=== PATIENT | female | born 1945 | race African-American/Black ===

== ENCOUNTER 2016-08-09 00:55 | Observation (INO) ==
[2016-08-09] MEDS ORDERED: KETOROLAC 30 MG/1 ML VIAL IV STA (01:16)
[2016-08-09] MEDS ORDERED: METHOCARBAMOL 1,000 MG/10 ML VIAL IV STA (01:16)
[2016-08-09] MEDS ORDERED: traMADol 50 MG TABLET PO STA (01:16)
[2016-08-09] MEDS ORDERED: methylPREDNISolone SOD SUC 125 MG/2 ML VIAL IV STA (01:16)
--- NOTE | 2016-08-09 01:20 | Emergency Department Note ---
Arrival - Arrival Chief Complaint: Chest Pain Stated Complaint: CHEST PAIN ED Nursing Triage Note: Patient complains of chest pain that began yesterday around lunch time. Denies nausea or vomiting. Hx of HTN. Patient took two baby aspirins today and had two baby aspirins as well as 2 nitroglycerin en route to facility. States that chest pain with from pain level 8 out of 10 to a level 6 out of 10 after nitroglycerin. Mode of Arrival: Ambulatory Limitations: No Limitations Source: Patient Time Seen by Provider: 08/09/16 01:16 - History of Present Illness HPI Narrative: This 71-year-old black female presents with 24 hours of mechanical chest wall pain not associated with nausea, vomiting, shortness of breath, or diaphoresis. The patient has no prior history of cardiac disease other than hypertension. Currently she is in no acute distress. Onset (ago): hour(s) (Patient presents 24 hours post onset of symptoms) Consistency: constant Severity: mild Date of Last Menstrual Period: hysterectomy Allergies/Adverse Reactions: Allergies Allergy/AdvReac Type Severity Reaction Status Date / Time No Known Allergies Allergy Unverified 03/14/15 11:24 Home Medications: Home Medications Medication Instructions Recorded Confirmed Type Amoxapine 50 mg PO DAILY 08/02/15 11/10/15 History Benztropine Tab [Cogentin Tab] 1 tablet PO BID 08/02/15 11/10/15 History Diltiazem HCl [Diltiazem ER] 180 mg PO DAILY 08/02/15 11/10/15 History Estradiol [Estradiol Tab] 1 tablet PO DAILY 08/02/15 11/10/15 History Furosemide Tab [Lasix Tab] 40 mg PO DAILY 08/02/15 11/10/15 History Potassium Chloride Cap/Tab [K Dur] 40 meq PO BID 08/02/15 11/10/15 History risperiDONE [Risperdal] 2 mg PO DAILY 08/02/15 11/10/15 History Aspirin [Ecotrin] 81 mg PO DAILY 11/10/15 11/10/15 History Bisacodyl [Correctol] 5 mg PO DIRECTED PRN 11/10/15 11/10/15 History Donepezil [Aricept] 5 mg PO BEDTIME 11/10/15 11/10/15 History Acetaminophen Tab [Tylenol Tab] 325 mg PO Q4H PRN #0 tablet 11/12/15 Rx Docusate Sodium Cap [Colace Cap] 100 mg PO BID PRN #30 capsule 11/12/15 Rx HYDROcodone/ACETAMIN 7.5-325 1 tablet PO Q6H #10 tablet 11/12/15 Rx [[place] 7.5-325] Lactulose Liquid [Chronulac] 20 gm PO Q4H PRN #7 udcup 11/12/15 Rx Pantoprazole Tab [Protonix Tab] 40 mg PO DAILY #30 tablet 11/12/15 Rx guaiFENesin/DM ER 600-30 [Mucinex 1 tablet PO BID PRN #20 tablet 11/12/15 Rx Dm 600-30 MG] Indomethacin Cap [Indocin Cap] 25 mg PO TID #30 capsule 08/09/16 Rx Tizanidine HCl [Zanaflex] 2 mg PO Q6H #40 capsule 08/09/16 Rx predniSONE TAB [PredniSONE] 20 mg PO DAILY #15 tablet 08/09/16 Rx Review of System - Review of System 12 point system: reviewed and no additional remarkable complaints except as stated - Review of System Constitutional: Present: as per HPI Respiratory: Present: as per HPI Cardiovascular: Present: as per HPI Gastrointestinal: Present: as per HPI Medical,Surgical,& Family Hx - Medical History Cardio: History of: Hypertension No history of: Aneurysm, Cardiac Dysrhythmia, Cerebrovascular Disease, Congenital Heart Disease, CHF, CAD, [place], Pacemaker, PVD, Valvular Heart Disease, Cardiovascular Problems Psychological: History of: Anxiety Disorders, Bipolar Disorder (medication bottles), Depression (medication bottles) Endocrine: No history of: Dyslipidemia Gastrointestinal: History of: GI Problems (constipation) - Surgical History Cardiac Surgeries: Patient Denies: Femoral-Popliteal Bypass Graft, Cardiac Catheterization, Cardiac Surgery, Carotid Endarterectomy, Internal Defibrillator, Vascular Access Devices HEENT Surgeries: Patient denies: Carotid Endarterectomy Abdominal Surgeries: Patient denies: Abdominal Surgery, Appendectomy, Cholecystectomy, Colonoscopy , Gastric Bypass Surgery, EGD, Hernia Repair, Splenectomy Reproductive Surgeries: Patient denies;: Genitourinary Surgery - Family History Family History: Reports;: Family Cancer (father had colon cancer, brother unknown cancer), Family Diabetes, Family Hypertension - Social History Smoking Status: Never smoker Frequency of Alcohol Use: None Type of Drug Use: None Exam Physical Examination: GENERAL: Well developed, well nourished elderly black female in no acute distress. HEENT: Normocephalic. No trauma. Moist mucous membranes. EOMI. PERRLA. ENT NML NECK: Supple. No adenopathy. CARDIAC: Regular. No murmurs. Heart rate 90 CHEST: Clear to auscultation. No respiratory distress. O2 sat 98%. Very tender right left costosternal junctions. ABDOMEN: Soft. Nontender. Active bowel sounds. EXTREMITIES: No trauma. Normal ROM. No pedal edema. SKIN: No diaphoresis. No rash. NEURO: Alert. Neuro intact. No focal deficits. Vital Signs: Vital Signs Temperature 97.8 F 08/09/16 00:56 Pulse Rate 82 08/09/16 00:56 Respiratory Rate 20 08/09/16 00:56 Blood Pressure 140/89 08/09/16 00:56 O2 Sat by Pulse Oximetry 98 08/09/16 00:56 Course - Reevaluation(s) Reevaluation #1: Discussed with patient the need for hospitalization for serial follow-up of cardiac enzymes. - Consultations Consultation #1: Discussed with the hospitalist, Dr. Knapp, who will admit for further evaluation and treatment. Results - Labs Labs: I reviewed the cardiac enzymes and noted the increasing bump in troponin. - Impressions EKG: Sinus rhythm at 90 with normal WA interval and QRS duration. Left axis deviation with nonspecific ST changes. No acute injury pattern noted. - Diagnostic Findings Procedure: Chest x-ray: image reviewed by me, report reviewed by me (Uncoiling of the aorta otherwise no acute disease.) Disposition Clinical Impression: Costochondritis, Abnormal cardiac enzyme Case discussed with: patient Condition: Stable Prescriptions: Indomethacin Cap [Indocin Cap] 25 mg PO TID #30 capsule Tizanidine HCl [Zanaflex] 2 mg PO Q6H #40 capsule predniSONE TAB [PredniSONE] 20 mg PO DAILY #15 tablet New Prescriptions: Rx's Medication Instructions Recorded Indomethacin Cap [Indocin Cap] 25 mg PO TID #30 capsule 08/09/16 Tizanidine HCl [Zanaflex] 2 mg PO Q6H #40 capsule 08/09/16 predniSONE TAB [PredniSONE] 20 mg PO DAILY #15 tablet 08/09/16 Time of Disposition: 03:22
--- NOTE | 2016-08-09 01:24 | EKG Report ---
Stationary ECG Study [facility] ER Test Date: 08/09/2016 1:09:06 AM Pat Name: MOE WALLER Department: Room: Gender: F Peanut Shaker: VIDYA ARZOLA : 1945 Requested by: Michael Tejada Order Number: [id number] Reading MD: RHIAN MEADOWS Intervals [place] Rate: 94 P: 17 SD: 168 QRS: -46 QRSD: 101 T: 47 QT: 362 QTc: 414 Interpretive Statements SINUS RHYTHM WITH PAC MARKED LEFT AXIS DEVIATION Electronically Signed On 08-10-16 12:42:08 CDT by RHINA MEADOWS [email or web address]
[2016-08-09] MEDS ORDERED: METHOCARBAMOL 1,000 MG/10 ML VIAL ONE (01:26)
[2016-08-09] MEDS ORDERED: traMADol 50 MG TABLET ONE (01:27)
[2016-08-09] MEDS ORDERED: methylPREDNISolone SOD SUC 125 MG/2 ML VIAL ONE (01:27)
[2016-08-09] MEDS ORDERED: KETOROLAC 30 MG/1 ML VIAL ONE (01:27)
[2016-08-09 01:46] LABS: Troponin I Only 0.064 NG/ML (0.00-0.045)
[2016-08-09 03:11] LABS: Troponin I Only 0.072 NG/ML (0.00-0.045)
[2016-08-09 03:38] LABS: Hematocrit 36.6 VOL% (35.7-47.0); Hemoglobin 11.5 GM/DL (12.0-16.0); Immature Granulocytes % 0.4 %; Immature Granulocytes Absolute 0.03 #; Lymphocytes # 1.8 10*3/uL (1.4-4.0); Lymphocytes % 20.7 % (21.3-54.2); Mean Corpuscular HGB Conc 31.4 GM/DL (32-36); Mean Corpuscular Hemoglobin 27 PG (27-34); Mean Corpuscular Volume 84.9 FL (87-102); Mean Platelet Volume 8.9 FL (9.6-12.0); Monocytes # 0.3 10*3/uL (0.11-0.8); Monocytes % 3.4 % (1.7-12.7); Neutrophils # 6.4 10*3/uL (1.4-7.4); Neutrophils % 75.5 % (38.7-73.9); Platelet Count 370 T/CUMM (130-400); Red Blood Count 4.31 MC/CUMM (3.8-5.5); Red Cell Distribution Width 14.1 % (9.3-17.3); White Blood Count 8.5 T/CUMM (4-12)
--- NOTE | 2016-08-09 03:47 | Hospitalist History & Physical ---
Assessment and Plan (1) Chest pain Status: Acute Current Visit: Yes (2) Hypertension Status: Acute Assessment and plan: Our plan for this patient 1. Admit the patient to telemetry 2. Cardiology consult 3. Serial cardiac enzymes 4. Check fasting lipid profile 5. Follow-up on the chemistry Current Visit: No History of Present Illness Chief complaint: Chest pain History of present illness: Ms. Franks is a 71 year old female with past medical history significant for hypertension presents with chief complaint of chest pain off and on 2 weeks. Patient reports that as a heavy sensation in she has a smothering sensation when this comes on. She gets short of breath there is an exertional component but she denies diaphoresis.. She does report that the pain seems to radiate to her right arm. She got concerned about night and took 2 baby aspirins and called EMS. She also was given 2 nitros in route. She reported that the pain was 8 out of 10 but it did reduce after the nitro I was consulted to admit her Home Medications Medication Instructions Recorded Confirmed Type Amoxapine 50 mg PO DAILY 08/02/15 08/09/16 History Benztropine Tab [Cogentin Tab] 1 tablet PO BID 08/02/15 08/09/16 History Diltiazem HCl [Diltiazem ER] 180 mg PO DAILY 08/02/15 08/09/16 History Estradiol [Estradiol Tab] 1 tablet PO DAILY 08/02/15 08/09/16 History Furosemide Tab [Lasix Tab] 40 mg PO DAILY 08/02/15 08/09/16 History Potassium Chloride Cap/Tab [K Dur] 40 meq PO BID 08/02/15 08/09/16 History risperiDONE [Risperdal] 2 mg PO DAILY 08/02/15 08/09/16 History Aspirin [Ecotrin] 81 mg PO DAILY 11/10/15 08/09/16 History Bisacodyl [Correctol] 5 mg PO DIRECTED PRN 11/10/15 08/09/16 History Donepezil [Aricept] 5 mg PO BEDTIME 11/10/15 08/09/16 History Acetaminophen Tab [Tylenol Tab] 325 mg PO Q4H PRN #0 tablet 11/12/15 08/09/16 Rx Docusate Sodium Cap [Colace Cap] 100 mg PO BID PRN #30 capsule 11/12/15 Rx HYDROcodone/ACETAMIN 7.5-325 1 tablet PO Q6H #10 tablet 11/12/15 08/09/16 Rx [[place] 7.5-325] Lactulose Liquid [Chronulac] 20 gm PO Q4H PRN #7 udcup 11/12/15 08/09/16 Rx Pantoprazole Tab [Protonix Tab] 40 mg PO DAILY #30 tablet 11/12/15 08/09/16 Rx guaiFENesin/DM ER 600-30 [Mucinex 1 tablet PO BID PRN #20 tablet 11/12/15 Rx Dm 600-30 MG] Indomethacin Cap [Indocin Cap] 25 mg PO TID #30 capsule 08/09/16 Rx Magnesium Chloride [Slow Mag] 64 mg PO DAILY 08/09/16 08/09/16 History Tizanidine HCl [Zanaflex] 2 mg PO Q6H #40 capsule 08/09/16 Rx predniSONE TAB [PredniSONE] 20 mg PO DAILY #15 tablet 08/09/16 Rx Allergies Allergy/AdvReac Type Severity Reaction Status Date / Time No Known Allergies Allergy Unverified 03/14/15 11:24 Medical,Surgical,& Family Hx - Medical History Cardio: History of: Hypertension No history of: Aneurysm, Cardiac Dysrhythmia, Cerebrovascular Disease, Congenital Heart Disease, CHF, CAD, [place], Pacemaker, PVD, Valvular Heart Disease, Cardiovascular Problems Psychological: History of: Anxiety Disorders, Bipolar Disorder (medication bottles), Depression (medication bottles) Endocrine: No history of: Dyslipidemia Gastrointestinal: History of: GI Problems (constipation) - Surgical History Cardiac Surgeries: Patient Denies: Femoral-Popliteal Bypass Graft, Cardiac Catheterization, Cardiac Surgery, Carotid Endarterectomy, Internal Defibrillator, Vascular Access Devices HEENT Surgeries: Patient denies: Carotid Endarterectomy Abdominal Surgeries: Patient denies: Abdominal Surgery, Appendectomy, Cholecystectomy, Colonoscopy , Gastric Bypass Surgery, EGD, Hernia Repair, Splenectomy Reproductive Surgeries: Surgical HX of;: Hysterectomy Patient denies;: Genitourinary Surgery - Family History Family History: Reports;: Family Cancer (father had colon cancer, brother unknown cancer), Family Diabetes, Family Hypertension - Social History Smoking Status: Never smoker Frequency of Alcohol Use: None Type of Drug Use: None 12 point system: reviewed and no additional remarkable complaints except as stated Exam - Constitutional Vitals: Period Temp Pulse Resp BP Sys/Garrett Pulse Ox Last 24 Hr 97.8 F-97.8 F 82-82 20-20 140-140/84-89 98 General appearance: normal weight - Head Head exam: Present: normal inspection - Eye Eye exam: Present: EOMI Pupils: Present: MYKEL - ENT ENT exam: Present: normal exam - Neck Neck exam: Present: normal inspection - Respiratory Respiratory exam: Present: clear to auscultation bilaterally - Cardiovascular Cardiovascular exam: Present: regular rate and rhythm - GI/Abdominal GI/Abdominal exam: Present: normal bowel sounds - Extremities Exam Extremities exam: Present: normal inspection - Back Exam Back exam: Present: normal inspection - Neurological Exam Neurological exam: Present: alert Results - Labs CBC & BMP: 08/09/16 03:27
[2016-08-09] MEDS ORDERED: DOCUSATE SODIUM 100 MG CAPSULE PO PRN (03:53)
[2016-08-09] MEDS ORDERED: ACETAMINOPHEN 325 MG TABLET PO PRN (03:53)
[2016-08-09] MEDS ORDERED: guaiFENesin/DM ER 600-30 MG TABLET PO PRN (03:53)
--- NOTE | 2016-08-09 03:53 | EKG Report ---
Stationary ECG Study [facility] ER Test Date: 08/09/2016 3:52:02 AM Pat Name: MOE WALLER Department: Room: Gender: F Finishing Inspector: IZAIAH : 1945 Requested by: Michael Tejada Order Number: [id number] Reading MD: RHINA MEADOWS Intervals [place] Rate: 78 P: 33 NV: 184 QRS: -33 QRSD: 105 T: 52 QT: 384 QTc: 417 Interpretive Statements SINUS RHYTHM MARKED LEFT AXIS DEVIATION POSSIBLE SEPTAL MYOCARDIAL INFARCTION, OF INDETERMINATE AGE Electronically Signed On 08-10-16 12:47:47 CDT by RHINA MEADOWS [email or web address]
[2016-08-09 04:17] LABS: Albumin 3.2 G/DL (3.4-5.0); Bilirubin,Total 0.4 MG/DL (0.2-1.0); Calcium 8.6 MG/DL (8.5-10.1); Potassium 4.1 MMOL/L (3.5-5.1); Total Protein 6.3 G/DL (6.4-8.3)
[2016-08-09 05:05] LABS: Risk Ratio 1.83; VLDL CHOLESTEROL 15.4 MG/DL
[2016-08-09] MEDS: NITROGLYCERIN 2% OINT 1 INCH/GM PACK TOP SCH ×3 (05:47→17:33)
--- NOTE | 2016-08-09 07:41 | EKG Report ---
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
--- NOTE | 2016-08-09 07:43 | XRay Report ---
Exam: XR chest 1V portable Indication: Midline chest pain Comparison study: 08/02/2015 Findings: The heart, mediastinum and bony structures are stable from prior. A lung volumes with elevation of the hemidiaphragms appear similar to prior. Minimal basilar interstitial opacities are similar to prior and may represent basilar atelectasis/scarring. There is no focal consolidation, pneumothorax or pleural effusion identified. Impression: No acute cardiopulmonary process. Similar hypoinflation with basilar atelectasis suggested, which appears similar to prior. PROCEDURE INTERPRETED AT [facility] DEPARTMENT OF RADIOLOGY Final Report Signed by: Gregorio Kenyon
[2016-08-09] MEDS ORDERED: BENZTROPINE 0.5 MG TABLET PO SCH (09:00)
[2016-08-09] MEDS ORDERED: PANTOPRAZOLE 40 MG TABLET PO SCH (09:00)
[2016-08-09] MEDS ORDERED: RISPERIDONE 2 MG PO SCH (09:00)
[2016-08-09] MEDS ORDERED: ESTRADIOL PO SCH (09:00)
[2016-08-09] MEDS ORDERED: DIAZEPAM 5 MG TABLET PO ONE (09:17)
[2016-08-09] MEDS ORDERED: MAGNESIUM SULF RIDER 2 GM in PREMIX 1 EACH IV PRN (09:17)
[2016-08-09] MEDS ORDERED: diphenhydrAMINE CAP 25 MG CAPSULE PO ONE (09:17)
[2016-08-09] MEDS ORDERED: POTASSIUM CHLORIDE RIDER 10 MEQ in PREMIX 1 EACH IV PRN (09:17)
--- NOTE | 2016-08-09 10:00 | Cardiology Consult Note ---
Assessment and Plan (1) Chest pain Status: Acute Assessment and plan: The patient's symptoms are concerning for angina. She also has a very slight change in her cardiac enzymes and nonspecific EKG changes. We discussed options for further workup and management, and I think cardiac catheterization would be the best way to proceed. The patient is agreeable. I am going to see if we can get this scheduled for today. Current Visit: Yes (2) Elevated troponin Status: Acute Current Visit: Yes (3) Hypertension Status: Acute Current Visit: No (4) GERD (gastroesophageal reflux disease) Status: Acute Current Visit: Yes History of Present Illness - Consult Narrative History of present illness: Ms. Franks is a 71 year old female with a history of hypertension and gastroesophageal reflux who presents to the hospital with complaints of chest pain. She tells me that she gets a severe pain in her chest in the substernal region which seems to be exacerbated by exertion and improves with rest or nitroglycerin. There is no associated symptoms such as diaphoresis or nausea. She does get somewhat short of breath with activity. The pain will occasionally radiate to her arms bilaterally. The symptoms can last up to half an hour. When she gets the symptoms she takes aspirin and this seems to help. Yesterday when she was brought to the emergency room she received nitroglycerin and this did improve her symptoms. The patient also has palpitations. She says sometimes it feels like her heart is fluttering. The symptoms seem random in occurrence. This can last for up to an hour. There are no specific exacerbating or relieving factors. The symptoms are moderate in severity. She denies any syncopal events. She has no orthopnea, PND, or peripheral edema. She denies any fever, chills, or cough. She denies any dysphagia or gastrointestinal blood loss. The, was seeing her she was pain-free. The patient had a slight bump in her cardiac troponin to 0.072 on admission. Her CPK was normal. Her EKG shows normal sinus rhythm and nonspecific ST-T changes. She denies any previous history of myocardial infarction, congestive heart failure, or stent placement. CC: Ciarra Poole MD - Home Medications and Allergies Home Medications: Home Medications Medication Instructions Recorded Confirmed Type Amoxapine 50 mg PO BID 08/02/15 08/09/16 History Benztropine Tab [Cogentin Tab] 1 tablet PO BEDTIME 08/02/15 08/09/16 History Diltiazem HCl [Diltiazem ER] 180 mg PO DAILY 08/02/15 08/09/16 History Estradiol [Estradiol Tab] 1 tablet PO DAILY 08/02/15 08/09/16 History Furosemide Tab [Lasix Tab] 40 mg PO DAILY 08/02/15 08/09/16 History Potassium Chloride Cap/Tab [K Dur] 20 meq PO BID 08/02/15 08/09/16 History risperiDONE [Risperdal] 4 mg PO DAILY 08/02/15 08/09/16 History Aspirin [Ecotrin] 81 mg PO DAILY 11/10/15 08/09/16 History Bisacodyl [Correctol] 5 mg PO DAILY PRN 11/10/15 08/09/16 History Donepezil [Aricept] 5 mg PO BEDTIME 11/10/15 08/09/16 History Magnesium Chloride [Slow Mag] 64 mg PO DAILY 08/09/16 08/09/16 History Allergies/Adverse Reactions: Allergies Allergy/AdvReac Type Severity Reaction Status Date / Time No Known Allergies Allergy Unverified 03/14/15 11:24 12 point system: reviewed and no additional remarkable complaints except as stated Medical,Surgical,& Family Hx - Medical History Cardio: History of: Hypertension No history of: Aneurysm, Cardiac Dysrhythmia, Cerebrovascular Disease, Congenital Heart Disease, CHF, CAD, [place], Pacemaker, PVD, Valvular Heart Disease, Cardiovascular Problems Psychological: History of: Anxiety Disorders, Bipolar Disorder (medication bottles), Depression (medication bottles) Endocrine: No history of: Dyslipidemia Respiratory: Comment Only: Obstructive Sleep Apnea (REPORTST SHE HAS BEEN TOLD SHE NEEDS TO BE TESTED FOR ANGELIC) Gastrointestinal: History of: GI Problems (constipation) Musculoskeletal: No history of: Amputation - Surgical History Cardiac Surgeries: Patient Denies: Femoral-Popliteal Bypass Graft, Cardiac Catheterization, Cardiac Surgery, Carotid Endarterectomy, Internal Defibrillator, Vascular Access Devices Thoracic Surgeries: Patient denies;: Organ Transplant, Lobectomy Neurologic Surgeries: Patient denies: Neurologic Surgery HEENT Surgeries: Patient denies: Carotid Endarterectomy, Eye Surgery, Tonsilectomy & Adenoidectomy Abdominal Surgeries: Patient denies: Abdominal Surgery, Appendectomy, Cholecystectomy, Colonoscopy , Gastric Bypass Surgery, EGD, Hernia Repair, Splenectomy Reproductive Surgeries: Surgical HX of;: Gynecologic Surgery, Hysterectomy Patient denies;: Genitourinary Surgery Orthopedic Surgeries: Patient denies;: Implanted Devices, Orthopedic Surgery, Spinal Surgery, Total Hip Replacement, Total Knee Replacement - Family History Family History: Reports;: Family Cancer (father had colon cancer, brother unknown cancer), Family Diabetes, Family Hypertension - Social History Smoking Status: Never smoker Frequency of Alcohol Use: None Type of Drug Use: None Physical Examination Vital Signs Temp Pulse Resp BP 97.8 F 82 20 140/84 08/09/16 00:54 08/09/16 00:54 08/09/16 00:54 08/09/16 00:54 Other: General: Appears well developed, well nourished, no apparent distress HEENT: Normocephalic, atraumatic Neck: Supple Neck, Midline Trachea, No Bruit, No JVD Cardiac: Reg Rate and Rhythm, 2/6 systolic Murmur, no gallop, no rub Lungs: Clear to auscultation, No Wheeze, Rales, Rhonchi Neuro: Cranial Nerve 2-12 Intact, Motor Function Grossly Intact Abdomen: Soft, Active Bowel Sounds, No Masses, No Pulsations/Bruits Skin: Normal color, no rash Extremities: No Clubbing, No Cyanosis, No Edema, Normal Upper Extr. Pulses Musculoskeletal: No acute abnormality noted Psychiatric: The patient does not appear to be anxious or depressed Result/EKG - Labs CBC & BMP: 08/09/16 03:27 08/09/16 03:27 Lab Results: I have reviewed the past 24 hour labs Labs: Laboratory Results - last 24 hr 08/09/16 08/09/16 08/09/16 07:20 Unknown Unknown Troponin I 0.059 H 0.062 H Triglycerides 77 Cholesterol 201 H LDL Cholesterol 89.0 VLDL Cholesterol 15.4 HDL Cholesterol 110 H Heart Disease Risk Ratio 1.83 - EKG EKG results: interpreted by me
--- NOTE | 2016-08-09 10:14 | EKG Report ---
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
[2016-08-09] MEDS: ENOXAPARIN 40 MG/0.4 ML SYRINGE SUBCUT SCH (11:52)
[2016-08-09] MEDS: AMOXAPINE 50 MG PO SCH (11:52)
[2016-08-09] MEDS: ESTRADIOL 1 MG TABLET PO SCH (11:53)
[2016-08-09] MEDS: MAGNESIUM CHLORIDE 64 MG TABLET PO SCH (11:54)
[2016-08-09] MEDS: ASPIRIN EC 81 MG TABLET PO SCH (11:55)
[2016-08-09] MEDS: DILTIAZEM CD 180 MG CAPSULE PO SCH (11:55)
[2016-08-09] MEDS: SODIUM CHLORIDE 0.45% 1,000 ML IV SCH ×2 (11:56→18:34)
[2016-08-09] MEDS: FUROSEMIDE 40 MG TABLET PO SCH (11:56)
[2016-08-09] MEDS ORDERED: MIDAZOLAM 2 MG/2 ML VIAL ONE (14:01)
[2016-08-09] MEDS ORDERED: HYDROmorphone 2 MG/1 ML VIAL ONE (14:01)
[2016-08-09] MEDS ORDERED: LIDOCAINE 1% 20 ML VIAL ONE (14:01)
[2016-08-09] MEDS ORDERED: HYDROmorphone 2 MG/1 ML VIAL IV PRN (14:32)
--- NOTE | 2016-08-09 14:39 | Cardiac Catheterization ---
Date of Procedure:: 08/09/16 Post-op diagnosis: same Procedure: Procedures performed: 1. Left heart catheterization 2. Coronary angiography 3. Left ventriculography 4. Right femoral arterial reclosure with Angio-Seal device Brief clinical summary: Mrs. Franks a 71-year-old risk factor for CAD as well as symptoms concerning for angina including an exertional chest discomfort. She had trivial troponin elevation. Description of procedure: After obtaining informed consent, the right groin was prepped and draped in the usual sterile fashion. Next a short 6 [place] sheath was placed in the right femoral artery using a modified Seldinger technique, after the patient received IV sedation and local anesthetic. Next a JL4 catheter was advanced over a guidewire under fluoroscopic guidance, and was engaged to the left coronary artery after which angiography was performed in multiple views. This was then removed over a wire, and a JR4 catheter was advanced in similar fashion was engaged the right coronary artery after which angiography was performed in multiple views. Next a bent pigtail catheter was advanced into the left ventricle, where hemodynamic measurements were obtained, left ventriculography was performed. I was able to visualize the sheath on a "cherry down" shot which showed the sheath was inserted in the right common femoral artery in a vessel suitable for closure. Hemostasis was obtained with Angio-Seal device with no residual bleeding. She was transferred from the clinical laboratory aide in good condition without complication. Coronary angiography: Left main coronary artery is normal developed and free of disease. Left anterior discharge of average caliber mixes the apex. It is a couple thin diagonals. The circumflex gives off a thinner than average high OM1 , and a very large bifurcating OM 2 branch and a thin continuing AV groove branch. The right coronary is a dominant vessel and has a slightly thinner than average for very long and tortuous PDA as well as posterolateral branch. There most minimal irregularities with no discrete lesions. Left ventriculography: Ventricle is normal size with normal LV systolic function ejection fraction is be 65%. There are no segmental wall motion abnormality. There is a most minimal mitral regurgitation. Impression: 1. Normal LV systolic function with ejection fraction estimated at 65% without segmental wall motion abnormality 2. Right dominant system 3. Normal coronary arteries Recommendations discussion: Given these findings Mrs. Franks symptoms are unlikely related to a cardiac issue and she has no stiff significant coronary artery disease. Her normal LV function is encouraging with regard to cardiac prognosis. She will need to avoid squatting straining or lifting for the next week Anesthesia: minimal conscious sedation Surgeon / Physician: Naveen Grover Tank Builder: other Estimated blood loss: minimal Specimens: none sent Condition: stable Disposition: floor - Medications / Follow-up
--- NOTE | 2016-08-09 16:23 | Hospitalist Progress Note ---
Assessment and Plan - Time spent with patient Time spent with patient: Greater than 30 minutes (1) Chest pain Status: Acute Assessment and plan: Troponins are mildly elevated however the left heart cath was completely normal. Discharge in 24 hours. Current Visit: Yes Hospitalist: Subjective Interval history: S/P LHC. No complaints currently. Exam - Constitutional Vitals: Period Temp Pulse Resp BP Sys/Garrett Pulse Ox Last 24 Hr 97.1 F-97.7 F 78-93 16-20 109-139/57-79 92-99 General appearance: no acute distress - Head Head exam: Present: normocephalic, atraumatic - Eye Eye exam: Present: EOMI Pupils: Present: MYKEL - ENT ENT exam: Present: normal exam - Neck Neck exam: Present: normal inspection - Respiratory Respiratory exam: Present: clear to auscultation bilaterally. Absent: rhonchi, wheezes - Cardiovascular Cardiovascular exam: Present: regular rate and rhythm. Absent: gallop, rubs, systolic murmur - GI/Abdominal GI/Abdominal exam: Present: normal bowel sounds, soft. Absent: distended, firm , guarding, tenderness, rebound - Extremities Exam Extremities exam: Present: normal inspection. Absent: calf tenderness, edema Results - Labs CBC & BMP: 08/09/16 03:27 08/09/16 03:27 Lab Results: I have reviewed the past 24 hour labs
[2016-08-09] MEDS ORDERED: ALBUTEROL/IPRATROPIUM 3 ML NEB RESP TX PRN (20:32)
[2016-08-09] MEDS: FAMOTIDINE 20 MG TABLET PO SCH (20:55)
[2016-08-09] MEDS ORDERED: BENZTROPINE 1 MG TABLET PO SCH (21:00)
[2016-08-09] MEDS ORDERED: DONEPEZIL 5 MG TABLET PO SCH (21:00)
[2016-08-09] MEDS ORDERED: risperiDONE 1 MG TABLET PO SCH (21:00)
--- NOTE | 2016-08-09 21:34 | ECHO Report ---
Mariajose Franks Exam Date: 08/09/2016 13:18 Referring Physician: Technologist: Gianna Singh RDCS Age: 71 Ht (in): Wt (lb): Gender: F Exam Location: [facility] Echo Indications: Chest pain, unspecified, Essential (primary) hypertension, Cardiac murmur, unspecified, GERD BP: / HR: Rhythm: Sinus Technical Quality: Very technically difficult study IMPRESSIONS Very technically difficult study. Left ventricular ejection fraction is estimated at 60 %. Mild concentric left ventricular hypertrophy with mild diastolic dysfunction. Mild atrial enlargement. Mild mitral annular calcification with tace mitral valve regurgitation. Mild aortic sclerosis without stenosis. Mild tricuspid valve regurgitation. Tricuspid regurgitation velocities suggest a PAP of 47 mmHg. MEASUREMENTS (Male / Female) Normal Values 2D ECHO LV Diastolic Diameter PLAX 2.5 cm 4.2 - 5.9 / 3.9 - 5.3 cm LV Systolic Diameter PLAX 1.5 cm LV Fractional Shortening PLAX 39.4 % IVS Diastolic Thickness 0.8 cm 0.6 - 1.0 / 0.6 - 0.9 cm LVPW Diastolic Thickness 0.8 cm 0.6 - 1.0 / 0.6 - 0.9 cm RV Internal Dim ED PLAX 2.8 cm Aortic Root Diameter 2.9 cm LA Systolic Diameter LX 3.3 cm 3.0 - 4.0 / 2.7 - 3.8 cm DOPPLER TR Peak Velocity 304.0 cm/s TR Peak Gradient 37.0 mmHg FINDINGS Left Ventricle Normal left ventricular cavity size. Mild concentric left ventricular hypertrophy with mild diastolic dysfunction. Left ventricular ejection fraction is estimated at 60 %. Right Ventricle The right ventricle is normal in size and function. Right Atrium The right atrium is normal in size. Left Atrium Mild atrial enlargement Mitral Valve Mild mitral annular calcification with tace mitral valve regurgitation. Aortic Valve Mild aortic sclerosis without stenosis. Tricuspid Valve Morphologically normal tricuspid valve. Mild tricuspid valve regurgitation. Tricuspid regurgitation velocities suggest a PAP of 47 mmHg. Pulmonic Valve Morphologically normal pulmonic valve without significant stenosis. There is no pulmonic regurgitation. Pericardium Normal pericardium without effusion. Aorta Normal ascending aorta dimension. Bhavesh Lima (Electronically Signed) Final Date: 09 August 2016 21:33
[2016-08-10] MEDS: SODIUM CHLORIDE 0.45% 1,000 ML IV SCH (02:30)
[2016-08-10 05:27] LABS: Basophils % 0.1 % (0.0-0.8); Hematocrit 32.9 VOL% (35.7-47.0); Hemoglobin 10.4 GM/DL (12.0-16.0); Immature Granulocytes % 0.6 %; Immature Granulocytes Absolute 0.08 #; Lymphocytes % 14.5 % (21.3-54.2); Mean Corpuscular HGB Conc 31.6 GM/DL (32-36); Mean Corpuscular Hemoglobin 26 PG (27-34); Mean Corpuscular Volume 82.9 FL (87-102); Monocytes # 0.8 10*3/uL (0.11-0.8); Monocytes % 5.9 % (1.7-12.7); Neutrophils % 78.9 % (38.7-73.9); Platelet Count 369 T/CUMM (130-400); Red Blood Count 3.97 MC/CUMM (3.8-5.5); Red Cell Distribution Width 14.5 % (9.3-17.3)
[2016-08-10] MEDS: NITROGLYCERIN 2% OINT 1 INCH/GM PACK TOP SCH ×3 (05:42→12:33)
[2016-08-10 05:54] LABS: Calcium 8.5 MG/DL (8.5-10.1); Osmolality,Calculated 284.8 MOS/KG (273-304); Potassium 3.6 MMOL/L (3.5-5.1)
[2016-08-10 07:38] VITALS: BP 118/63
--- NOTE | 2016-08-10 09:06 | Hospitalist Progress Note ---
Assessment and Plan - Time spent with patient Time spent with patient: Greater than 30 minutes (1) Chest pain Status: Acute Assessment and plan: Troponins are mildly elevated however the left heart cath was completely normal. Current Visit: Yes (2) Pneumonia Status: Acute Assessment and plan: Initiate Levaquin. Current Visit: Yes Hospitalist: Subjective Interval history: States she feels as though she has a cold. No other complaints. Exam - Constitutional Vitals: Period Temp Pulse Resp BP Sys/Garrett Pulse Ox Last 24 Hr 97.1 F-98.3 F 66-93 16-20 101-153/51-79 92-100 General appearance: no acute distress - Head Head exam: Present: normocephalic, atraumatic - Eye Eye exam: Present: EOMI Pupils: Present: MYKEL - ENT ENT exam: Present: normal exam - Neck Neck exam: Present: normal inspection - Respiratory Respiratory exam: Present: clear to auscultation bilaterally. Absent: rhonchi, wheezes - Cardiovascular Cardiovascular exam: Present: regular rate and rhythm. Absent: gallop, rubs, systolic murmur - GI/Abdominal GI/Abdominal exam: Present: normal bowel sounds, soft. Absent: distended, firm , guarding, tenderness, rebound - Extremities Exam Extremities exam: Present: normal inspection. Absent: calf tenderness, edema Results - Labs CBC & BMP: 08/10/16 05:08 08/10/16 05:08 Lab Results: I have reviewed the past 24 hour labs
[2016-08-10] MEDS ORDERED: LEVOFLOXACIN INJ 750 MG in PREMIX 1 EACH IV SCH (09:30)
[2016-08-10] MEDS: ASPIRIN EC 81 MG TABLET PO SCH (09:47)
[2016-08-10] MEDS: FUROSEMIDE 40 MG TABLET PO SCH (09:47)
[2016-08-10] MEDS: MAGNESIUM CHLORIDE 64 MG TABLET PO SCH (09:47)
[2016-08-10] MEDS: ESTRADIOL 1 MG TABLET PO SCH (09:47)
[2016-08-10] MEDS: FAMOTIDINE 20 MG TABLET PO SCH (09:48)
[2016-08-10] MEDS: AMOXAPINE 50 MG PO SCH (09:48)
[2016-08-10] MEDS: DILTIAZEM CD 180 MG CAPSULE PO SCH (09:48)
[2016-08-10] MEDS: ENOXAPARIN 40 MG/0.4 ML SYRINGE SUBCUT SCH (09:51)
--- NOTE | 2016-08-10 10:05 | XRay Report ---
History: Cough Date: 08/10/2016 Study: Chest x-ray AP portable Comparison exam: 08/09/2016 The cardiac silhouette is borderline prominent. The mediastinal contour is unchanged. There is no pulmonary vascular engorgement. There is some strandy atelectatic change in the lung bases as before, mildly increased on the right in the interval. The upper lungs are clear. There is no gross pleural effusion. Osseous structures are similar. Impression: Continued bibasilar atelectasis, increased on the right PROCEDURE INTERPRETED AT [facility] DEPARTMENT OF RADIOLOGY Final Report Signed by: Dr. Macy Osullivan
--- NOTE | 2016-08-10 10:43 | Discharge Summary ---
Hospital Course - Hospital Course Hospital Course: Noncardiac chest pain: Mrs. Franks was admitted for evaluation of noncardiac chest pain and mildly elevated troponin level. She was seen by cardiology in consultation. She was taken to the [facility] and evaluation of her coronary arteries revealed no disease. She was noted to have an elevation in her white blood cell count and chest x-ray revealed right lower lobe atelectasis versus infiltrate. She adamantly requested to be discharged home. She was administered Levaquin and I will continue her treatment as outpatient. By discharge she had met maximum benefit of hospitalization. - Time spent with patient Time with patient DS: Greater than 30 minutes Diagnosis - Discharge Diagnosis (1) Chest pain Status: Acute (2) Pneumonia Status: Acute Discharge Plan - Discharge Data Disposition: Disch To Home/Self Care Condition at Discharge: Stable Discharge Diet: advance to your usual diet - Discharge Medications New Levofloxacin Tab [Levaquin Tab] 500 mg PO DAILY #7 tablet Continue Diltiazem HCl [Diltiazem ER] 180 mg PO DAILY Potassium Chloride Cap/Tab [K Dur] 20 meq PO BID risperiDONE [Risperdal] 4 mg PO DAILY Furosemide Tab [Lasix Tab] 40 mg PO DAILY Estradiol [Estradiol Tab] 1 tablet PO DAILY Amoxapine 50 mg PO BID Benztropine Tab [Cogentin Tab] 1 tablet PO BEDTIME Donepezil [Aricept] 5 mg PO BEDTIME Bisacodyl [Correctol] 5 mg PO DAILY PRN PRN Reason: Constipation Aspirin [Ecotrin] 81 mg PO DAILY Magnesium Chloride [Slow Mag] 64 mg PO DAILY - Follow Up or Referral - Forms/Instructions Exam - Constitutional Vitals: Period Temp Pulse Resp BP Sys/Garrett Pulse Ox Last 24 Hr 97.1 F-98.3 F 66-93 16-20 101-153/51-79 92-100 General appearance: normal weight, no acute distress - Head Head exam: Present: normal inspection - Eye Eye exam: Present: EOMI Pupils: Present: MYKEL - ENT ENT exam: Present: normal exam - Neck Neck exam: Present: normal inspection - Respiratory Respiratory exam: Present: clear to auscultation bilaterally - Cardiovascular Cardiovascular exam: Present: regular rate and rhythm - GI/Abdominal GI/Abdominal exam: Present: normal bowel sounds - Extremities Exam Extremities exam: Present: normal inspection Discharge Results Procedures and tests throughout hospitalization: Pending Orders 08/10/16 09:03 Urinalysis Routine Labs on day of discharge: Labs from last 24 hours 08/10/16 08/10/16 08/09/16 05:08 05:08 10:14 WBC 14.0 H D RBC 3.97 Hgb 10.4 L Hct 32.9 L MCV 82.9 L MCH 26 L MCHC 31.6 L RDW 14.5 Plt Count 369 MPV 9.0 L Neut % (Auto) 78.9 H Lymph % (Auto) 14.5 L [place] % (Auto) 5.9 Eos % (Auto) 0.0 Baso % (Auto) 0.1 Neut # (Auto) 11.0 H Lymph # (Auto) 2.0 [place] # (Auto) 0.8 Eos # (Auto) 0.0 Baso # (Auto) 0.0 Immature Gran % 0.6 Nucleated RBC % 0.0 Immature Gran # 0.08 Nucleated RBCs # 0.00 Sodium 144 Potassium 3.6 Chloride 107 Carbon Dioxide 23 Anion Gap 17.6 H BUN 7 Creatinine 0.60 GFR Calculation 113 BUN/Creatinine Ratio 11.00 Glucose 120 H Calculated Osmolality 284.8 Calcium 8.5 Magnesium 2.0 Troponin I 0.053 H DS: Provider Date of admission: 08/09/16 03:51 Primary care physician: . No PCP Attending physician on admission: Ciarra Poole MD Discharging clinician: Ciarra Poole MD Expected date of discharge: 08/10/16
--- NOTE | 2016-08-10 10:44 | Cardiology Progress Note ---
<Jolanta Felix E - Last Filed: 08/10/16 10:30> Assessment and Plan - Time spent with patient Time spent with patient: Greater than 30 minutes (1) Hypertension Status: Chronic Assessment and plan: Well controlled. Current Visit: No (2) Chest pain Status: Resolved Assessment and plan: Stable. Current Visit: Yes (3) GERD (gastroesophageal reflux disease) Status: Chronic Assessment and plan: Continue PPI Current Visit: Yes (4) Pneumonia Status: Acute Assessment and plan: Being treated with oral Levaquin Current Visit: Yes Cardiology - PN: Subj Interval history: Ms. Franks, 71-year-old female, was admitted with chest pain shortness of breath. Dr. Lima was initially consulted. Patient's symptoms were concerning for angina. For this reason, she underwent elective cardiac catheterization performed by Dr. Grover August 09, 2016 with the following impression noted: Impression: 1. Normal LV systolic function with ejection fraction estimated at 65% without segmental wall motion abnormality 2. Right dominant system 3. Normal coronary arteries She tolerated the procedure well without complication and was returned to our telemetry unit in stable condition. Overnight, she has done well. Her labs are stable. Chest x-ray reveals a left lower lobe pneumonia. Patient is anxious for release home. Originally, Dr. Ortiz planned on keeping her an additional night for IV Levaquin to discharge tomorrow. However, as I am in the room, patient is requesting for discharge today. She assures me she will take Levaquin 500 milligrams orally as prescribed. Her primary care provider is Dr. Campos. We will arrange for her to have a 2 week appointment with chest x-ray with Dr. Campos to reevaluate the pneumonia. I have instructed her to return to the emergency room or seek medical advice should her shortness of breath, cough or chest discomfort worsen. She verbalized understanding. I have discussed this with her attending and will defer her discharge to him. I will arrange for 1 week follow-up with Dr. Lima at [facility] [place] [facility]. Exam (Progress Note) - Constitutional Vitals: Period Temp Pulse Resp BP Sys/Garrett Pulse Ox Last 24 Hr 97.1 F-98.3 F 66-93 16-20 101-153/51-79 92-100 Exam: General: [Appears well with no apparent distress.] [Pleasant and cooperative. ] [Appears comfortable.] HEENT: [PERRL, normocephalic, atraumatic. Mucous membranes moist. No jaundice noted. Conjunctiva moist and clear, sclerae anicteric] Neck: No JVD/HJR, no thyromegaly or lymphadenopathy noted. No carotid bruit appreciated Cardiac: [Regular rate and rhythm.] [No murmur rub or gallop.] Lungs: [Clear to auscultation without accessory muscle use to assist the respiratory pattern.] Not requiring oxygen Abdomen: Soft, bowel sounds normoactive. Nontender and nondistended. No abdominal bruit or thrill noted. No masses noted. Musculoskeletal: No fluid collection. Decreased range of motion is noted. Extremities: Right groin soft, free of hematoma or bruit. No clubbing, cyanosis noted. [ No edema noted.] Upper extremity pulses 2+. Lower extremity pulses 2+ . Capillary refill less than 3 seconds. Skin: No unusual lesions or rashes. No skin breakdown appreciated. Neuro: Awake, alert and oriented 3. Moves all extremities well without hemiparesis or paralysis. No essential tremor is appreciated. Result/EKG - Labs CBC & BMP: 08/10/16 05:08 08/10/16 05:08 Lab Results: I have reviewed the past 24 hour labs Labs: Laboratory Results - last 24 hr 08/09/16 08/10/16 08/10/16 10:14 05:08 05:08 WBC 14.0 H D RBC 3.97 Hgb 10.4 L Hct 32.9 L MCV 82.9 L MCH 26 L MCHC 31.6 L RDW 14.5 Plt Count 369 MPV 9.0 L Neut % (Auto) 78.9 H Lymph % (Auto) 14.5 L [place] % (Auto) 5.9 Eos % (Auto) 0.0 Baso % (Auto) 0.1 Neut # (Auto) 11.0 H Lymph # (Auto) 2.0 [place] # (Auto) 0.8 Eos # (Auto) 0.0 Baso # (Auto) 0.0 Immature Gran % 0.6 Nucleated RBC % 0.0 Immature Gran # 0.08 Nucleated RBCs # 0.00 Sodium 144 Potassium 3.6 Chloride 107 Carbon Dioxide 23 Anion Gap 17.6 H BUN 7 Creatinine 0.60 GFR Calculation 113 BUN/Creatinine Ratio 11.00 Glucose 120 H Calculated Osmolality 284.8 Calcium 8.5 Magnesium 2.0 Troponin I 0.053 H - Diagnostic Findings Procedure: Chest x-ray: report reviewed by me - EKG EKG results: interpreted by me EKG shows: sinus rhythm Specialty Discharge - Follow Up or Referrals Follow up with: Bhavesh Lima MD [Physician] - 08/23/16 11:00 am (1-2 weeks. ) Chaitanya Campos MD [Physician] - 08/24/16 9:45 am (2 weeks. Needs CXR RE: pneumonia, CBC, BMP, Mg. ) <Bhavesh Lima - Last Filed: 08/10/16 12:15> Assessment and Plan (1) Chest pain Status: Resolved Current Visit: Yes (2) Elevated troponin Status: Acute Current Visit: Yes (3) Hypertension Status: Chronic Current Visit: No (4) GERD (gastroesophageal reflux disease) Status: Chronic Current Visit: Yes Cardiology - PN: Subj Interval history: I have seen, interviewed, examined the patient and reviewed his chart and discussed the case with the mid-level provider and agree with the plan as outlined in the note. Exam (Progress Note) - Constitutional Vitals: Period Temp Pulse Resp BP Sys/Garrett Pulse Ox Last 24 Hr 97.1 F-98.3 F 66-90 16-20 101-153/51-79 92-100 Result/EKG - Labs CBC & BMP: 08/10/16 05:08 08/10/16 05:08 Labs: Laboratory Results - last 24 hr 08/10/16 08/10/16 05:08 05:08 WBC 14.0 H D RBC 3.97 Hgb 10.4 L Hct 32.9 L MCV 82.9 L MCH 26 L MCHC 31.6 L RDW 14.5 Plt Count 369 MPV 9.0 L Neut % (Auto) 78.9 H Lymph % (Auto) 14.5 L [place] % (Auto) 5.9 Eos % (Auto) 0.0 Baso % (Auto) 0.1 Neut # (Auto) 11.0 H Lymph # (Auto) 2.0 [place] # (Auto) 0.8 Eos # (Auto) 0.0 Baso # (Auto) 0.0 Immature Gran % 0.6 Nucleated RBC % 0.0 Immature Gran # 0.08 Nucleated RBCs # 0.00 Sodium 144 Potassium 3.6 Chloride 107 Carbon Dioxide 23 Anion Gap 17.6 H BUN 7 Creatinine 0.60 GFR Calculation 113 BUN/Creatinine Ratio 11.00 Glucose 120 H Calculated Osmolality 284.8 Calcium 8.5 Magnesium 2.0
[2016-08-10 12:28] LABS: Apearance,Urine Slightly Hazy (Clear); Bacteria,Urine Occasional /HPF (Few); Bilirubin,Urine Negative (Negative); Blood, Urine Small mg/dL (Negative); Glucose,Urine (UA) Negative (Negative); Ketones,Urine Negative (Negative); Mucus,Urine Occasional /LPF (Occasional); Nitrite,Urine Negative (Negative); Protein,Urine Negative; RBC,Urine 21 /HPF (0-4); Squamous Epithelial Cell,Urine Occasional /HPF (0-10); Urine Color Yellow (Yellow); Urine Specific Gravity 1.003 (1.001-1.035); Urine Urobilinogen < 2.0 EU/DL (0.2-1.0); WBC,Urine 2 /HPF (0-6)
== END 2016-08-10 12:32 | disposition home or self-care (01) ==
LOC: EDBD → EDUNIT# → N.EDINP 00:55 → N.ED 00:55 → N.EDINP 04:42 → N.TELEN 05:06
PROVIDERS: ADMIT Internal Medicine; ATTEND Internal Medicine
PROC: CLCCHCL (ICD-10-PCS; 2016-08-09 14:45)